=== PATIENT | male | born 1970 | race Caucasian/White ===

== ENCOUNTER 2017-02-16 12:48 | Emergency (ER) | payer OTHER ==
--- NOTE | 2017-02-16 14:21 | DIAGNOSTIC IMAGING REPORT ---
PROCEDURE: CT ABDOMEN/PELVIS W/O CONTRAST INDICATION: Right flank pain. TECHNIQUE: Noncontrast axial images were obtained of the entire abdomen and pelvis with sagittal and coronal reformations. COMPARISON: None. FINDINGS: ABDOMEN: Lungs are clear. Heart size is normal. 4 x 1.5 mm right UVJ calculus with mild right hydro ureteral nephrosis. Normal left kidney and ureter. Liver, gallbladder, pancreas, spleen (calcified granuloma) and adrenal glands are normal. Normal abdominal aorta. Nonspecific bowel gas pattern. PELVIS: Redundant sigmoid. Small midline infraumbilical fat-containing hernia. No pelvic mass, inflammatory changes or free fluid. No suspicious osseous lesions. IMPRESSION: 1. 4 x 1.5 mm right UVJ calculus with mild right hydroureteronephrosis 2. Redundant sigmoid 3. Results discussed with Dr. Barrera All CT scans at this facility use dose modulation, iterative reconstruction, and/or weight-based dosing when appropriate to reduce radiation dose to as low as reasonably achievable.
--- NOTE | 2017-02-16 14:54 | ED NURSING NOTES ---
Clinical Report - Nurses [facility] [address] [place] [address] 02/16/2017 12:51 Patient: YOLANDA SANTOS TRIAGE Triage time 1302 PM. Acuity: LEVEL 3. Chief Complaint: ABDOMINAL PAIN and NAUSEA. Alert. No acute distress. SEPSIS SCREEN: Sepsis Screen. Negative (no infection suspected/documented). ERIKA COMA SCORE: [place] Coma Scale: 15- eyes open spontaneously (4); best verbal response- oriented x 4 (5); best motor response- obeys commands (6). --13:13 Natalia Rapp R.N. 13:02 02/16/17. BP: 174/123 (large adult cuff) taken on the left arm, via an automated monitor, while sitting. HR: 86. RR: 18. O2 saturation: 97% on room air. Temp: 97.5 F (oral). Pain level now: 07/07. --13:13 Natalia Rapp R.N. Weight: 145.1 kg. Height/Length: 71 inches. BMI: 44.6. --13:03 Natalia Rapp R.N. Medications High blood pressure med. --13:06 Natalia Rapp R.N. Coreg Oral 6.25 mg, daily. --15:38 Natalia Rapp R.N. Allergies Penicillins. --13:06 Natalia Rapp R.N. Medication/allergy information source: the patient. --13:13 Natalia Rapp R.N. History Arrived by private vehicle. Historian: patient. Unaccompanied. Primary physician (). ( Pt states being at work when out of now where started having right flank and abdominal pain, sharp unable to describe "just hurts constantly" Pt admits to feeling nauseous no vomiting, no difficulty urinating, no fevers or chills, pt noted to be sweating and in pain). This started today. This is a new problem and onset was abrupt. Symptoms are constant and still present (3 hours). He has had nausea. Last oral intake by patient was dinner last night and yesterday (drank sips of coffee this AM). 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 PAST MEDICAL HX: Immunizations: up-to-date. SOCIAL HX: Never smoker. Occasional alcohol use. No drug use. No recent travel. No infectious disease exposure. No known contact with a sick individual. ABUSE ASSESSMENT: No report of abuse. SELF HARM ASSESSMENT: A self harm assessment was performed. The patient answered "no" to the question "Do you have thoughts of harming or killing yourself?" and "Have you recently had thoughts about harming or killing others?". FALL RISK ASSESSMENT: Fall risk assessment completed. No fall risk identified. NUTRITIONAL RISK ASSESSMENT: The nutritional risk assessment revealed no deficiencies. FUNCTIONAL ASSESSMENT: Functional assessment: no impairments noted. LEARNING NEEDS ASSESSMENT: The learning needs assessment revealed no barriers. SKIN INTEGRITY ASSESSMENT: Skin integrity risk assessment completed. No skin integrity risk identified. --13:13 Natalia Rapp R.N. PROBLEMS: Sepsis. Leukocytosis. Cellulitis. Gastroesophageal Reflux. Sinus Problems. Asthma. Headache. Obesity. Hypertension. --13:06 Natalia Rapp R.N. ADDITIONAL SURGERIES: Reconstruction stomach 1993. --13:06 Natalia Rapp R.N. Interventions ID band on patient. --13:13 Natalia Rapp R.N. PHYSICAL ASSESSMENT Ambulatory to room. GENERAL / NEURO / PSYCH: Alert. Oriented X 4. Appears in pain and anxious. HEENT: Mucous membranes are pink. RESPIRATORY: Respirations not labored. Breath sounds within normal limits. CVS: Capillary refill less than 2 seconds. GI / : The patient has had nausea. Abdomen soft and nontender. Abdominal tenderness. Bowel sounds within normal limits. No abdominal distention. SKIN: Skin is warm and dry. --13:08 Natalia Rapp R.N. NURSING PROGRESS NOTES 13:02/16/2017 Site #1 started via IV in the right antecubital space with an 20g angiocath; one attempt. Blood drawn: rainbow set. Labeled in the presence of the patient and sent to the lab. --13:09 Natalia Rapp R.N. The initial plan of care for this patient has been created This plan of care was discussed with the patient. Patient ID band checked for patient name, birthdate and medical record number: patient confirmed. Blood samples drawn from the right antecubital space by nurse per protocol ; labeled in presence of the patient and sent to lab: rainbow set. Patient gowned. Reassurance given. Patient ID band checked for patient name, birthdate and medical record number: patient confirmed. Instructions provided to collect clean catch urine and patient verbalized understanding. Clean catch urine collected with return of yellow-colored clear urine; sample sent to lab for urinalysis. Specimen labeled in the presence of the patient. Two patient identifiers checked. Call light placed in reach. Side rails up x 1. Bed placed in lowest position. --13: Natalia Rapp R.N. 13:02/16/2017 Morphine IVP 4 mg given over 30 second(s) via site #1. Allergies verified, confirmed 5 rights and sedative warning given to the patient. IV patency established. IV site checked: no pain, redness, or swelling. IV flushed thoroughly pre- and post-medication administration. IVP given by RN. --13: Natalia Rapp R.N. 13:02/16/2017 Started bag #1 1000 mL IV Fluids IV NS (Saline); at 1000 mL/hr over 1 hour(s) via site #1 via IV pump. Allergies verified and confirmed 5 rights. IV patency established. IV site checked: no pain, redness, or swelling. IV flushed thoroughly pre- and post-medication administration. Completed per protocol. --13: Natalia Rapp R.N. 13:02/16/2017 Zofran (Ondansetron HCl) IVP 4 mg given over 2 minute(s) via site #1. Allergies verified and confirmed 5 rights. IV patency established. IV site checked: no pain, redness, or swelling. IV flushed thoroughly pre- and post-medication administration. IVP given by RN. --13: Natalia Rapp R.N. 13:02/16/2017 Morphine IVP 8 mg given over 2 minute(s) via site #1. Allergies verified, confirmed 5 rights and sedative warning given to the patient. IV patency established. IV site checked: no pain, redness, or swelling. IV flushed thoroughly pre- and post-medication administration. --13:55 Charleen Wilkins R.N. 14:28 02/16/2017 Toradol IVP 30 mg given over 30 second(s) via site #1. Allergies verified and confirmed 5 rights. IV patency established. IV site checked: no pain, redness, or swelling. IV flushed thoroughly pre- and post-medication administration. IVP given by RN. --14:28 Natalia Rapp R.N. 14:00 02/16/17. BP: 186/100 (regular adult cuff) taken on the left arm, via an automated monitor, while lying. HR: 98. RR: 18. O2 saturation: 95% on room air. Temp: 97.5 F (oral). Pain level now: 02/04. --14:29 Natalia Rapp R.N. Pulse oximeter and NIBP monitor placed on patient. Reassurance given. Reassessment after fluids administered. GI / : The patient reports abdominal pain. Denies nausea, diarrhea or vomiting. Two patient identifiers checked. Call light placed in reach. --14:29 Natalia Rapp R.N. 14:30 02/16/2017 IV Fluids IV NS Discontinued: bag #1 completed. Total amount infused: 1000 mL. IV patency established. IV site checked: no pain, redness, or swelling. IV flushed thoroughly. --14:30 Natalia Rapp R.N. 14:57 02/16/2017 Morphine IVP 8 mg given over 2 minute(s) via site #1. Allergies verified, confirmed 5 rights and sedative warning given to the patient and patient's family. IV patency established. IV site checked: no pain, redness, or swelling. IV flushed thoroughly pre- and post-medication administration. IVP given by RN. --14:57 Natalia Rapp R.N. 15:32 02/16/17. BP: 183/113 (large adult cuff) taken on the left arm, via an automated monitor, while sitting. HR: 74. RR: 18. O2 saturation: 100%. Temp: 98.3 F. Pain level now: 02/04. --15:35 Natalia Rapp R.N. Pulse oximeter and NIBP monitor placed on patient; monitor alarms on. Reassurance given. The patient is calm and resting quietly. Overall patient status is the same- he states feels better. ( Discharge instructions reviewed, pt as per Dr. Barrera "ok to wait around and see how he feels" IV fluids infusing, BP 180's MD aware, pt wondering if "he can get something for his pressure" MD aware. Strainer given to pt and explanation given, all concerns addressed. Will monitor). GI / : The patient reports abdominal pain. Denies nausea, diarrhea or vomiting. Patient identifiers checked. Call light placed in reach. --15:35 Natalia Rapp R.N. 15:11 02/16/2017 Toradol IVP Response: no adverse reaction pain is improving. Symptoms have improved the patient feels better. --15:36 Natalia Rapp R.N. 15:36 02/16/2017 Morphine IVP Response: no adverse reaction pain is improving. Symptoms have improved the patient feels better. --15:36 Natalia Rapp R.N. DISPOSITION / DISCHARGE 16:20 02/16/2017 Site #1 removed upon discharge. Catheter intact. --16:20 Trung Taylor R.N. 16:21 02/16/17. Condition at departure: improved. The goals identified in the patient's plan of care were met. ( Pt educated on how to strain urine and provide stone to PCP). No learning barriers present. Discharge instructions provided and reviewed with the patient. Reviewed warnings. Reviewed medication(s). Treatments reviewed. Reviewed referral to a urologist. Patient and spouse verbalized understanding. Written instructions provided in Belarusian. The patient was discharged by the physician. He was discharged home and accompanied by family. He left the Emergency Department ambulatory and via private vehicle. Family member driving. FALL RISK ASSESSMENT: Fall risk assessment completed. No fall risk identified. --16:21 Trung Taylor R.N. 16:19 02/16/17. BP: 182/98. HR: 72. RR: 14. O2 saturation: 99%. Temp: 98.2 F (oral). --16:21 Trung Taylor R.N. 16:21 02/16/17. Departure time: 16:21. --16:21 Trung Taylor R.N. Locked/Released at 02/16/2017 16:22 by Trung Taylor R.N.
--- NOTE | 2017-02-16 14:54 | ED ORDER SUMMARY ---
..... Patient: YOLANDA SANTOS OrderSheet [facility] VisitID: [id number] [address] [place] [address] 46y, M Registration Date/Time: 02/16/2017 ORDER SHEET Weight: 145.1 kg Allergies: Penicillins GENERAL ORDERS: CT Abd/Pel wo Cont Urgent (13:02/16/2017 Eliot Krueger) (Ack 13:27 LMuller) (14:10 ALawrence ER Tech1) CBC w Diff Urgent (13:02/16/2017 Eliot Krueger) (13:24 EHassan R.N.) (Ack 13:27 LMuller) CMP Urgent (13:02/16/2017 Eliot Krueger) (13:24 EHassan R.N.) (Ack 13:27 LMuller) UA-Culture if indicated Urgent (13:02/16/2017 Eliot Krueger) (13:24 EHassan R.N.) (Ack 13:27 LMuller) Lipase Urgent (13:02/16/2017 Eliot Krueger) (13:24 EHassan R.N.) (Ack 13:27 LMuller) Pulse oximeter (13:02/16/2017 Eliot Krueger) (13:28 EHassan R.N.) MEDICATION ORDERS: IV FLUIDS: IV NS : initial bolus 1000 mL (1000 mL/hr), then none - for X1 (NOW) (13:02/16/2017 Eliot Krueger) (13:29 EHassaansley R.N.) Morphine IV 4 mg (HIGH ALERT MEDICATION, NOW) (13:02/16/2017 Eliot Krueger) (13:29 JACKIEassaansley R.N.) Zofran IV 4 mg (NOW) (13:02/16/2017 Eliot Krueger) (13:29 JACKIEassaansley R.N.) Morphine IV 8 mg (HIGH ALERT MEDICATION, NOW) (13:52 02/16/2017 Eliot Krueger) (13:55 LWhaltheodore R.N.) Toradol IV 30 mg (NOW) (14:02/16/2017 Eliot Krueger) (14:28 Rohini MontesNRyan) Morphine IV 8 mg (HIGH ALERT MEDICATION, NOW) (14:53 02/16/2017 Eliot Krueger) (14:57 Rohini Jhaveri.Steve) ORDER SHEET NOTES: [Electronically signed by Trung Taylor R.N. (16:02/16/2017)] [Electronically signed by Oniel Barrera Dr. (07:55 02/21/2017)] [Electronically locked/signed by Trung Taylor R.N. (16:02/16/2017)]
--- NOTE | 2017-02-16 14:54 | ED ORDER SUMMARY ---
..... Patient: YOLANDA SANTOS OrderSheet [facility] VisitID: [id number] [address] [place] [address] 46y, M Registration Date/Time: 02/16/2017 ORDER SHEET Weight: 145.1 kg Allergies: Penicillins GENERAL ORDERS: CT Abd/Pel wo Cont Urgent (13:02/16/2017 Eliot Krueger) (Ack 13:27 LMuller) (14:10 ALawrence ER Tech1) CBC w Diff Urgent (13:02/16/2017 Eliot Krueger) (13:24 EHassan R.N.) (Ack 13:27 LMuller) CMP Urgent (13:02/16/2017 Eliot Krueger) (13:24 EHassan R.N.) (Ack 13:27 LMuller) UA-Culture if indicated Urgent (13:02/16/2017 Eliot Krueger) (13:24 EHassan R.N.) (Ack 13:27 LMuller) Lipase Urgent (13:02/16/2017 Eliot Krueger) (13:24 EHassan R.N.) (Ack 13:27 LMuller) Pulse oximeter (13:02/16/2017 Eliot Krueger) (13:28 EHassan R.N.) MEDICATION ORDERS: IV FLUIDS: IV NS : initial bolus 1000 mL (1000 mL/hr), then none - for X1 (NOW) (13:02/16/2017 Eliot Krueger) (13:29 EHassaansley R.N.) Morphine IV 4 mg (HIGH ALERT MEDICATION, NOW) (13:02/16/2017 Eliot Krueger) (13:29 JACKIEassaansley R.N.) Zofran IV 4 mg (NOW) (13:02/16/2017 Eliot Krueger) (13:29 JACKIEassaansley R.N.) Morphine IV 8 mg (HIGH ALERT MEDICATION, NOW) (13:52 02/16/2017 Eliot Krueger) (13:55 LWhaltheodore R.N.) Toradol IV 30 mg (NOW) (14:02/16/2017 Eliot Krueger) (14:28 Rohini MontesNRyan) Morphine IV 8 mg (HIGH ALERT MEDICATION, NOW) (14:53 02/16/2017 Eliot Krueger) (14:57 Rohini Jhaveri.Steve) ORDER SHEET NOTES: [Electronically signed by Trung Taylor R.N. (16:02/16/2017)] [Electronically signed by Oniel Barrera Dr. (07:55 02/21/2017)] [Electronically locked/signed by Trung Taylor R.N. (16:02/16/2017)]
--- NOTE | 2017-02-16 14:54 | ED CLINICAL REPORT ---
Clinical Report - Physicians/Mid Levels [facility] [address] [place] [address] 02/16/2017 12:51 Patient: YOLANDA SANTOS Time Seen: 1317. Arrived- By private vehicle. Historian- patient. HISTORY OF PRESENT ILLNESS Chief Complaint: FLANK PAIN. It is described as "pain" and cramping. No radiation. It is described as located in the right flank. At its maximum, severity described as severe. When seen in the E.D., severity described as severe. Modifying factors- worsened by movement. Relieved by rest. The patient has had nausea and vomiting. No loss of appetite or diarrhea. No additional abdominal pain. No recent travel. Similar symptoms previously: None. Recent medical care: Not recently seen/assessed. REVIEW OF SYSTEMS No constipation, black stools, hematemesis or bloody stools. All systems otherwise negative, except as recorded above. PAST HISTORY See nurses notes. Medications: Coreg Oral 6.25 mg, daily. High blood pressure med. Allergies: Penicillins. SOCIAL HISTORY Never smoker. Alcohol use. No drug use. No recent travel. Is a local resident. ADDITIONAL NOTES The nursing notes have been reviewed. PHYSICAL EXAM Vital Signs: 02/16/2017 13:02 BP: 174/123. HR: 86. RR: 18. O2 saturation: 97%. Temp: 97.5 F. Pain level now: 10/10. Blood pressure normal. Oxygen saturation normal. Appearance: Alert. Oriented X3. No acute distress. Eyes: Pupils equal, round and reactive to light. Eyes normal inspection. ENT: Ears normal. Nose normal. Pharynx normal. Neck: Normal inspection. Neck supple. CVS: Normal heart rate and rhythm. Heart sounds normal. Pulses normal. Respiratory: No respiratory distress. Breath sounds normal. Chest nontender. Abdomen: Soft and nontender. Bowel sounds normal. No mass. (no tenderness at mcburney's. negative master's.). Back: Mild CVA tenderness on the right. Skin: Skin warm and dry. Normal skin color. No rash. Normal skin turgor. Extremities: Extremities exhibit normal ROM. No lower extremity edema. Neuro: Oriented X 3. No motor deficit. No sensory deficit. LABS, X-RAYS, AND EKG Abdominal CT: PROCEDURE: CT ABDOMEN/PELVIS W/O CONTRAST INDICATION: Right flank pain. TECHNIQUE: Noncontrast axial images were obtained of the entire abdomen and pelvis with sagittal and coronal reformations. COMPARISON: None. FINDINGS: ABDOMEN: Lungs are clear. Heart size is normal. 4 x 1.5 mm right UVJ calculus with mild right hydro ureteral nephrosis. Normal left kidney and ureter. Liver, gallbladder, pancreas, spleen (calcified granuloma) and adrenal glands are normal. Normal abdominal aorta. Nonspecific bowel gas pattern. PELVIS: Redundant sigmoid. Small midline infraumbilical fat-containing hernia. No pelvic mass, inflammatory changes or free fluid. No suspicious osseous lesions. IMPRESSION: 1. 4 x 1.5 mm right UVJ calculus with mild right hydroureteronephrosis 2. Redundant sigmoid. Laboratory Tests: UA-Culture if indicated: (CARMELITA: 02/16/2017 13:00) ( [facility] 02/16/2017 13:47) Final results Test Result Flag Units (Reference) URINE COLOR YELLOW URINE APPEARANCE SL CLOUDY URINE GLUCOSE NEGATIVE (NEGATIVE) URINE BILIRUBIN NEGATIVE (NEGATIVE) URINE KETONE NEGATIVE (NEGATIVE) URINE SPECIFIC GRAVITY 1.015 (1.010-1.030) URINE PH 6.5 (5.0-8.0) URINE PROTEIN TRACE (NEGATIVE) URINE UROBILINOGEN 0.2 EU/dL (0.2-1.0) URINE NITRITE NEGATIVE (NEGATIVE) URINE BLOOD 3+ (NEGATIVE) URINE LEUK ESTERASE NEGATIVE (NEGATIVE) URINE RBC >100 rbc/hpf (0-1) URINE WBC 0-1 wbc/hpf (0-1) URINE EPITHELIAL CELLS 0-1 EPI/hpf (0-5) URINE BACTERIA NONE SEEN (NONE SEEN) URINE COMMENT CULT NOT INDICATED URINE CULTURES ARE SET-UP BASED ON THE FOLLOWING CRITERIA:POSITIVE NITRITEPOSITIVE LEUKOCYTE ESTERASEGREATER THAN 10 WHITE BLOOD CELLSMODERATE (2+) OR GREATER BACTERIA CBC w Diff: (CARMELITA: 02/16/2017 13:10) ( [facility] 02/16/2017 13:32) Final results Test Result Flag Units (Reference) WHITE BLOOD COUNT 7.2 K/uL (4.5-11.5) RED BLOOD COUNT 5.19 M/uL (4.50-5.90) HEMOGLOBIN 14.5 gm/dL (13.5-17.5) HEMATOCRIT 43.7 % (41.0-53.0) MEAN CELL VOLUME 84 fL (80-100) MEAN CORPUSCULAR HGB 28 pg (26-34) MEAN CORPUSCULAR HGB CONC 33 g/dL (31-37) RED CELL DISTRIBUTION WIDTH 14.6 % (11.6-14.8) PLATELET COUNT 221 K/uL (150-400) NEUTROPHIL % 75.3 H % (50-75) LYMPH % 17.2 L % (25-40) MONO % 5.9 % (3-14) EOSINOPHIL % 1.3 % (0-4) BASOPHIL % 0.3 % (0-2) CMP: (CARMELITA: 02/16/2017 13:10) ( MsgRcvd 02/16/2017 13:55) Final results Test Result Flag Units (Reference) GLUCOSE 117 H mg/dL (70-110) BUN 16 mg/dL (7-18) CREATININE 1.0 mg/dL (0.6-1.3) Estimated GFR >60 mL/min Estimated GFR- >60 mL/min Note: Persistent reduction over 3 months in eGFR<60 mL/min/1.73 m2 defines CKD. Patients with eGFR values>=60 mL/min/1.73 m2 may also have CKD if evidence ofpersistent proteinuria. Additional information may be foundat www.kidney.org. SODIUM 141 mmol/L (136-145) POTASSIUM 3.4 L mmol/L (3.5-5.1) CHLORIDE 102 mmol/L (98-107) CARBON DIOXIDE 27 mmol/L (21-32) CALCIUM 9.1 mg/dL (8.5-10.1) TOTAL PROTEIN 7.8 g/dL (6.4-8.2) ALBUMIN 3.8 g/dL (3.3-5.0) BILIRUBIN, TOTAL 0.7 mg/dL (0.0-1.0) ALKALINE PHOSPHATASE 80 U/L (46-116) AST (SGOT) 24 U/L (15-37) ALT (SGPT) 40 U/L (12-78) LIPASE 100 U/L (73-393) . PROGRESS AND PROCEDURES Course of Care: the patient is a pleasant 46-year-old male presenting for a vaginal right-sided flank pain. This time differential diagnosis includes acute appendicitis, or more likely renal colic. Patient will be evaluated with a CT scan of the abdomen and pelvis without contrast. Laboratory studies also been ordered including urinalysis. Pain medication as provided. All questions have been answered. Patient is agreeable to the treatment plan. Patient's workup was unremarkable for the findings above. Patient with good chance of passing the stone spontaneously. Pain has been controlled while here in the emergency department after several doses of medications. Patient continues to be nontoxic and in no acute distress. Because of the patient's improved symptoms and pain control, feel the patient is a stable outpatient candidate. We'll have patient follow up with urology And primary care Dr. Heidi discussed with the patient's workup here in the emergency Department clinic diagnosis, home care, follow-up, and return precautions. All questions have been answered. The patient expressed understanding of these instructions and was agreeable to them. Repeat abdominal exam continues to be benign. do not feel patient has a surgical abdomen. Disposition: Discharged. Condition: good. CLINICAL IMPRESSION Acute abdominal pain of unknown cause (right flank). 02/16/2017 14:00 BP: 186/100. HR: 98. RR: 18. O2 saturation: 95%. Temp: 97.5 F. Pain level now: 5/10. Microscopic hematuria (acute). Blood pressure normal. Oxygen saturation normal. Right renal colic in the right ureter with hydronephrosis and hematuria. Essential hypertension. INSTRUCTIONS Warnings: GENERAL WARNINGS: Return or contact your physician immediately if your condition worsens or changes unexpectedly, if not improving as expected, or if other problems arise. SPECIFICALLY, return if you develop pain, fever, vomiting, the inability to keep fluids down, blood in vomitus, blood in diarrhea, fainting or lightheadedness. Your Current Medications: CONTINUE TAKING THE FOLLOWING MEDICATIONS: High blood pressure med*. Prescription Medications: Zofran (orally disintegrating tablets) 4 mg: take 1 orally every 6 hours as needed for nausea and vomiting. Dispense twenty-five (25). No refill. Substitution is permissible. Motrin 600 mg tablets: take 1 tablet orally every 6 hours as needed for pain, stiffness or swelling. Dispense thirty (30). No refill. Substitution is permissible. (take with food) Percocet 5 mg/325 mg: take 1-2 tablets orally every 6 hours as needed for pain. Dispense twenty-five (25). No refill. Substitution is permissible. Follow-up: Return to the emergency department as needed. Follow up with your doctor in three days. Reason for referral: recheck today's concerns. Summary of care provided to patient via paper. Screening today revealed the patient's blood pressure to be in the hypertensive range. Blood pressure screening was not performed during this visit because the patient has an active diagnosis of hypertension. The patient should follow up with a primary care provider for blood pressure management. Understanding of the discharge instructions verbalized by patient. Follow-up with: Arnoldo Estrada MD, Urology, , [address] [facility], [id number] Follow up in one week. Reason for referral: recheck today's concerns. Summary of care provided to patient via paper. (Electronically signed by Oniel Barrera Dr. 02/21/2017 7:55)
--- NOTE | 2017-02-21 07:56 | ED MAR SUMMARY ---
..... Medication Administration Record [facility] [address] [place] [address] Patient: YOLANDA SANTOS Visit ID: [id number] 46y, M Weight: 145.1 kg Height/Length: 71 in BMI: 44.6 ALLERGIES: Penicillins Start 13:02/16/2017 Natalia Rapp R.N., Stop 14:02/16/2017 Natalia Rapp R.N. Medication Administered: IV NS (SALINE), Dose: IV Fluids over 1 hour(s), Rate: 1000 mL/hr, Dispensed: 1000 mL bag, Site: #1 right AC. Medication Ordered: IV NS : initial bolus 1000 mL (1000 mL/hr), then none - for X1 (NOW). Given 13:02/16/2017 Natalia Rapp R.N. Medication Administered: MORPHINE [IVP], Dose: 4 mg IVP over 30 second(s), Site: #1 right AC. Medication Ordered: Morphine IV 4 mg (HIGH ALERT MEDICATION, NOW). Given 13:02/16/2017 Natalia Rapp R.N. Medication Administered: ZOFRAN [IVP] (ONDANSETRON HCL), Dose: 4 mg IVP over 2 minute(s), Site: #1 right AC. Medication Ordered: Zofran IV 4 mg (NOW). Given 13:02/16/2017 Charleen Wilkins R.N. Medication Administered: MORPHINE [IVP], Dose: 8 mg IVP over 2 minute(s), Site: #1 right AC. Medication Ordered: Morphine IV 8 mg (HIGH ALERT MEDICATION, NOW). Given 14:02/16/2017 Natalia Rapp R.N. Medication Administered: TORADOL [IVP], Dose: 30 mg IVP over 30 second(s), Site: #1 right AC. Medication Ordered: Toradol IV 30 mg (NOW). Given 14:02/16/2017 Natalia Rapp R.N. Medication Administered: MORPHINE [IVP], Dose: 8 mg IVP over 2 minute(s), Site: #1 right AC. Medication Ordered: Morphine IV 8 mg (HIGH ALERT MEDICATION, NOW).
--- NOTE | 2017-02-21 07:56 | ED MED RECONCILIATION SUMMARY ---
Patient: YOLANDA SANTOS Medication Reconciliation Report [facility] VisitID: [id number] [address] [place] [address] 46y, M Registration Date/Time: 02/16/2017 Weight: 145.1 kg Height/Length: 71 in. BMI: 44.6 ALLERGIES: Penicillins The patient's Home Medications are listed below: CONTINUE TAKING THE FOLLOWING MEDICATIONS: High blood pressure med THE FOLLOWING MEDICATIONS NEED TO BE RECONCILED: Coreg Oral 6.25 mg, daily The source(s) of the original Home Medication information: patient The following Medications were given to the patient in the Emergency Department: Morphine [IVP] IVP 4 mg, administered: 02/16/2017 1:29:00 PM IV NS IV Fluids bolus 0, then 1000 mL/hr, administered: 02/16/2017 1:29:00 PM Zofran [IVP] IVP 4 mg, administered: 02/16/2017 1:29:00 PM Morphine [IVP] IVP 8 mg, administered: 02/16/2017 1:55:00 PM Toradol [IVP] IVP 30 mg, administered: 02/16/2017 2:28:00 PM Morphine [IVP] IVP 8 mg, administered: 02/16/2017 2:57:00 PM The following Medications were prescribed to the patient: Zofran (orally disintegrating tablets) 4 mg: take 1 orally every 6 hours as needed for nausea and vomiting. Dispense twenty-five (25). No refill. Substitution is permissible. -- Oniel Barrera Dr. Motrin 600 mg tablets: take 1 tablet orally every 6 hours as needed for pain, stiffness or swelling. Dispense thirty (30). No refill. Substitution is permissible.(take with food) -- Oniel Barrera Dr. Percocet 5 mg/325 mg: take 1-2 tablets orally every 6 hours as needed for pain. Dispense twenty-five (25). No refill. Substitution is permissible. -- Oniel Barrera Dr.
--- NOTE | 2017-02-21 07:56 | ED MAR SUMMARY ---
..... Medication Administration Record [facility] [address] [place] [address] Patient: YOLANDA SANTOS Visit ID: [id number] 46y, M Weight: 145.1 kg Height/Length: 71 in BMI: 44.6 ALLERGIES: Penicillins Start 13:02/16/2017 Natalia Rapp R.N., Stop 14:02/16/2017 Natalia Rapp R.N. Medication Administered: IV NS (SALINE), Dose: IV Fluids over 1 hour(s), Rate: 1000 mL/hr, Dispensed: 1000 mL bag, Site: #1 right AC. Medication Ordered: IV NS : initial bolus 1000 mL (1000 mL/hr), then none - for X1 (NOW). Given 13:02/16/2017 Natalia Rapp R.N. Medication Administered: MORPHINE [IVP], Dose: 4 mg IVP over 30 second(s), Site: #1 right AC. Medication Ordered: Morphine IV 4 mg (HIGH ALERT MEDICATION, NOW). Given 13:02/16/2017 Natalia Rapp R.N. Medication Administered: ZOFRAN [IVP] (ONDANSETRON HCL), Dose: 4 mg IVP over 2 minute(s), Site: #1 right AC. Medication Ordered: Zofran IV 4 mg (NOW). Given 13:02/16/2017 Charleen Wilkins R.N. Medication Administered: MORPHINE [IVP], Dose: 8 mg IVP over 2 minute(s), Site: #1 right AC. Medication Ordered: Morphine IV 8 mg (HIGH ALERT MEDICATION, NOW). Given 14:02/16/2017 Natalia Rapp R.N. Medication Administered: TORADOL [IVP], Dose: 30 mg IVP over 30 second(s), Site: #1 right AC. Medication Ordered: Toradol IV 30 mg (NOW). Given 14:02/16/2017 Natalia Rapp R.N. Medication Administered: MORPHINE [IVP], Dose: 8 mg IVP over 2 minute(s), Site: #1 right AC. Medication Ordered: Morphine IV 8 mg (HIGH ALERT MEDICATION, NOW).
--- NOTE | 2017-02-21 07:56 | ED MED RECONCILIATION SUMMARY ---
Patient: YOLANDA SANTOS Medication Reconciliation Report [facility] VisitID: [id number] [address] [place] [address] 46y, M Registration Date/Time: 02/16/2017 Weight: 145.1 kg Height/Length: 71 in. BMI: 44.6 ALLERGIES: Penicillins The patient's Home Medications are listed below: CONTINUE TAKING THE FOLLOWING MEDICATIONS: High blood pressure med THE FOLLOWING MEDICATIONS NEED TO BE RECONCILED: Coreg Oral 6.25 mg, daily The source(s) of the original Home Medication information: patient The following Medications were given to the patient in the Emergency Department: Morphine [IVP] IVP 4 mg, administered: 02/16/2017 1:29:00 PM IV NS IV Fluids bolus 0, then 1000 mL/hr, administered: 02/16/2017 1:29:00 PM Zofran [IVP] IVP 4 mg, administered: 02/16/2017 1:29:00 PM Morphine [IVP] IVP 8 mg, administered: 02/16/2017 1:55:00 PM Toradol [IVP] IVP 30 mg, administered: 02/16/2017 2:28:00 PM Morphine [IVP] IVP 8 mg, administered: 02/16/2017 2:57:00 PM The following Medications were prescribed to the patient: Zofran (orally disintegrating tablets) 4 mg: take 1 orally every 6 hours as needed for nausea and vomiting. Dispense twenty-five (25). No refill. Substitution is permissible. -- Oniel Barrera Dr. Motrin 600 mg tablets: take 1 tablet orally every 6 hours as needed for pain, stiffness or swelling. Dispense thirty (30). No refill. Substitution is permissible.(take with food) -- Oniel Barrera Dr. Percocet 5 mg/325 mg: take 1-2 tablets orally every 6 hours as needed for pain. Dispense twenty-five (25). No refill. Substitution is permissible. -- Oniel Barrera Dr.
--- NOTE | 2017-02-21 07:56 | ED DISCHARGE INSTRUCTIONS ---
Patient: YOLANDA SANTOS General Instructions [facility] VisitID: [id number] [address] [place] [address] 46y, M Registration Date/Time: 02/16/2017 Acute abdominal pain of unknown cause (right flank). 02/16/2017 14:00 BP: 186/100. HR: 98. RR: 18. O2 saturation: 95%. Temp: 97.5 F. Pain level now: 5/10. Microscopic hematuria (acute). Blood pressure normal. Oxygen saturation normal. Right renal colic in the right ureter with hydronephrosis and hematuria. Essential hypertension. INSTRUCTIONS Warnings: GENERAL WARNINGS: Return or contact your physician immediately if your condition worsens or changes unexpectedly, if not improving as expected, or if other problems arise. SPECIFICALLY, return if you develop pain, fever, vomiting, the inability to keep fluids down, blood in vomitus, blood in diarrhea, fainting or lightheadedness. Your Current Medications: CONTINUE TAKING THE FOLLOWING MEDICATIONS: High blood pressure med*. Prescription Medications: Zofran (orally disintegrating tablets) 4 mg: take 1 orally every 6 hours as needed for nausea and vomiting. Dispense twenty-five (25). No refill. Substitution is permissible. Motrin 600 mg tablets: take 1 tablet orally every 6 hours as needed for pain, stiffness or swelling. Dispense thirty (30). No refill. Substitution is permissible. (take with food) Percocet 5 mg/325 mg: take 1-2 tablets orally every 6 hours as needed for pain. Dispense twenty-five (25). No refill. Substitution is permissible. Follow-up: Return to the emergency department as needed. Follow up with your doctor in three days. Reason for referral: recheck today's concerns. Summary of care provided to patient via paper. Screening today revealed the patient's blood pressure to be in the hypertensive range. Blood pressure screening was not performed during this visit because the patient has an active diagnosis of hypertension. The patient should follow up with a primary care provider for blood pressure management. Understanding of the discharge instructions verbalized by patient. Follow-up with: Arnoldo Estrada MD, Urology, , [address] [facility], [id number] Follow up in one week. Reason for referral: recheck today's concerns. Summary of care provided to patient via paper. ADDITIONAL INFORMATION Abdominal Pain,Uncertain Cause [Male] Based on your visit today, the exact cause of your abdominalpain is not clear. Your exam and tests do not indicate a dangerous cause at this time. However, the signs of a serious problem may take more time to appear. Although your evaluation was reassuring today, sometimes early in the course of many conditions, exam and lab tests can appear normal. Therefore, it is important for you to watch for any new symptoms or worsening of your condition. Causes It may not be obvious what caused your symptoms. Pay attention to things that do seem to make your symptoms worse or better and discuss this with your doctor when you follow up. Diagnosis The evaluation of abdominal pain in the emergency department may onlyrequire an exam by the doctor or it may include blood, urine or imaging studies, depending on many factors. Sometimes exams and tests can identify a cause but in many cases, a clear cause is not found. Further testing at follow up visits may help to suggest a clear diagnosis. Home Care Rest as much as possible until your next exam. Try to avoid any medications (unless otherwise directed by your doctor), foods, activities, or other factors that you may have contributed to your symptoms. Try to eat foods that you know that you have tolerated well in the past. Certain diets may be recommended for some conditions that cause abdominal pain. However, since the cause of your symptoms may not be clear, discuss your diet more with your primary care provider or specialist for further recommendations. Eating several small meals per day as opposed to 2 or 3 larger meals may help. Monitor closely for anything that may make your symptoms worse or better. Pay close attention to symptoms below that may indicate worsening of your condition. Follow Up and Precautions See your doctoras instructed or sooneror if your symptoms are not improving.In some cases, you may need more testing. When to Seek Medical Attention Contact your doctor or see medical attention ifany of the following occur: Pain is becoming worse You are unable to take your medications due to excessive vomiting Swelling of the abdomen Fever of 100.4F (38C) or higher, or as directed by your health care provider Blood in vomit or bowel movements (dark red or black color) Jaundice (yellow color of eyes and skin) New onset of weakness, dizziness or fainting New onset of chest, arm, back, neck or jaw pain Kidney Stone (W/ Colic) The sharp cramping pain and nausea/vomiting that you have is due to a small stone which has formed in the kidney and is now passing down a narrow tube (ureter) on its way to your bladder. Once it reaches your bladder, the pain will stop. The stone may pass in your urine stream in one piece. [The size may be 1/16" to 1/4" (1-6mm)]. Or, the stone may also break up into cristina fragments which you may not even notice. Once you have had a kidney stone, you are at risk for developing another one in the future. Home Care: Drink plenty of fluids (at least 8 to 10 glasses of water a day). Most stones will pass on their own, but may take from a few hours to a few days. Sometimes the stone is too large to pass by itself and special methods will have to be used to remove the stone. Each time you urinate, do so in a jar. Pour the urine from the jar through the strainer and into the toilet. Continue doing this until 24 hours after your pain stops. By then, if there was a kidney stone, it should pass from your bladder. Some stones dissolve into sand-like particles and pass right through the strainer. In that case, you wont ever see a stone. Save any stone that you find in the strainer and bring it to your doctor for analysis. It may be possible to prevent certain types of stones from forming. Therefore, it is important to know what kind of stone you have. Try to stay as active as possible since this will help the stone pass. Do not stay in bed unless your pain prevents you from getting up. You may notice a red, pink or brown color to your urine. This is normal while passing a kidney stone. Follow Up with your doctor or return to this facility if the pain lasts more than 48 hours. Get Prompt Medical Attention if any of the following occur: Pain that is not controlled by the medicine given Repeated vomiting or unable to keep down fluids Weakness, dizziness or fainting Fever of 100.4F (38C) or higher, or as directed by your healthcare provider Passage of solid red or brown urine (can't see through it) or urine with lots of blood clots Unable to pass urine for 8 hours and increasing bladder pressure High Blood Pressure --Established High Blood Pressure (Hypertension) is a chronic disease. The cause is unknown in most cases. It can usually be controlled with lifestyle changes and/or medicines. Symptoms of high blood pressure may include headache, dizziness, visual changes, chest pain and shortness of breath. Sometimes it causes no symptoms at all. However, even if there are no symptoms, untreated high blood pressure increases the risk of heart attack, also known as acute myocardial infarction, or AMI, and stroke. It is a serious health risk and should not be ignored. A normal blood pressure is 120/80 or less. The first (top) number is the "systolic" pressure. The second (bottom) number is the "diastolic" pressure. Hypertension exists when either the top number is 140 or higher, OR the bottom number is 90 or higher on repeated measurements. Home Care: All patients with high blood pressure should do the following to lower their pressure. If you are on medicines, then these methods may reduce or eliminate your need for medicines in the future. Begin a weight loss program if you are overweight. Reduce your salt intake. Avoid high salt foods (olives, pickles, smoked meats, salted potato chips, etc.). Do not add salt to your food at the table. Use only small amounts of salt when cooking. Begin an exercise program. Discuss with your doctor what type of exercise program would be best for you. It doesn't have to be difficult. Even brisk walking for 20 minutes three times a week is a good form of exercise. Avoid medicines which contain heart stimulants. This includes many cold and sinus decongestant pills and sprays as well as diet pills. Check the warnings about hypertension on the label. Stimulants such as amphetamine or cocaine could be lethal for someone with hypertension. Never take these. Limit your caffeine intake or switch to caffeine-free products. Stop smoking. If you are a long-time smoker, this can be hard. Enroll in a stop-smoking program to improve your chance of success. Learning how to handle stress better is an important part of any program to lower blood pressure. Learn about relaxation methods such as meditation, yoga or biofeedback. If medicines were prescribed, take them exactly as directed. Missing doses may cause your blood pressure get out of control. Consider buying an automatic blood pressure machine (available at most pharmacies). Use this to monitor your blood pressure at home and report the results to your doctor. Follow Up: Regular visits to your own physician for blood pressure checks and medicine adjustment is an important part of your care. Make a follow-up appointment as directed by our staff. Get Prompt Medical Attention if any of the following occur: Chest pain or shortness of breath Severe headache Throbbing or rushing sound in the ears Nosebleed Sudden severe abdominal pain Extreme drowsiness, confusion or fainting Dizziness or vertigo (dizziness with spinning sensation) Weakness of an arm or leg or one side of the face Difficulty with speech or vision Blood In The Urine Blood in the urine ("hematuria") has many possible causes. If it occurs after an injury (such as a car accident or fall), it is most often a sign of bruising to the kidney or bladder. Common medical causes of blood in the urine include urinary tract infection, kidney stone, inflammation, tumors, or certain other diseases of the kidney or bladder. Menstruation can cause blood to appear in the urine sample, although it is not coming from the urinary tract. If only a trace amount of blood is present, it will show up on the urine test, even though the urine may be yellow and not pink or red. This may occur with any of the above conditions, as well as heavy exercise or high fever. In this case, your doctor may want to repeat the urine test on another day. This will show if the blood is still present. If so, then other tests can be done to find out the cause. Home Care: If your urine does not appear bloody (pink, brown or red) then you do not need to restrict your activity in any way. If you can see blood in your urine, rest and avoid heavy exertion until your next exam. Do not use aspirin or anti-inflammatory medicine like ibuprofen (Motrin, Advil) or naproxen (Naprosyn, Aleve). These thin the blood and may increase bleeding. Follow Up with your doctor or as advised by our staff. If you were injured and had blood in your urine, you should have a repeat urine test in 1-2 days. Contact your doctor or return to this facility for this test. [NOTE: A radiologist will review any X-rays that were taken. We will notify you of any new findings that may affect your care.] Get Prompt Medical Attention if any of the following occur: Bright red blood or blood clots in the urine (if a new symptom) Weakness, dizziness or fainting New groin, abdominal or back pain Fever of 100.4F (38C) or higher, or as directed by your healthcare provider Repeated vomiting Bleeding from nose, gums or easy bruising Ondansetron Oral disintegrating tablet What is this medicine? ONDANSETRON (on OZZIE se ray) is used to treat nausea and vomiting caused by chemotherapy. It is also used to prevent or treat nausea and vomiting after surgery. How should I use this medicine? These tablets are made to dissolve in the mouth. Do not try to push the tablet through the foil backing. With dry hands, peel away the foil backing and gently remove the tablet. Place the tablet in the mouth and allow it to dissolve, then swallow. While you may take these tablets with water, it is not necessary to do so. Talk to your online merchant regarding the use of this medicine in children. Special care may be needed. What side effects may I notice from receiving this medicine? Side effects that you should report to your doctor or health hemodialysis patient care specialist as soon as possible: allergic reactions like skin rash, itching or hives, swelling of the face, lips, or tongue breathing problems dizziness fast or irregular heartbeat feeling faint or lightheaded, falls fever and chills swelling of the hands and feet tightness in the chest Side effects that usually do not require medical attention (report to your doctor or health hemodialysis patient care specialist if they continue or are bothersome): constipation or diarrhea headache What may interact with this medicine? Do not take this medicine with any of the following medications: -apomorphine -cisapride -dofetilide -dronedarone -pimozide -thioridazine -ziprasidone This medicine may also interact with the following medications: -carbamazepine -phenytoin -rifampicin -tramadol -other medicines that prolong the QT interval (cause an abnormal heart rhythm) What if I miss a dose? If you miss a dose, take it as soon as you can. If it is almost time for your next dose, take only that dose. Do not take double or extra doses. Where should I keep my medicine? Keep out of the reach of children. Store between 2 and 30 degrees C (36 and 86 degrees F). Throw away any unused medicine after the expiration date. What should I tell my health care provider before I take this medicine? They need to know if you have any of these conditions: heart disease history of irregular heartbeat liver disease low levels of magnesium or potassium in the blood an unusual or allergic reaction to ondansetron, granisetron, other medicines, foods, dyes, or preservatives or trying to get breast-feeding What should I watch for while using this medicine? Check with your doctor or health hemodialysis patient care specialist as soon as you can if you have any sign of an allergic reaction. Ibuprofen Oral tablet What is this medicine? IBUPROFEN (eye BYOO proe fen) is a non-steroidal anti-inflammatory drug (NSAID). It is used for dental pain, fever, headaches or migraines, osteoarthritis, rheumatoid arthritis, or painful monthly periods. It can also relieve minor aches and pains caused by a cold, flu, or sore throat. How should I use this medicine? Take this medicine by mouth with a glass of water. Follow the directions on the prescription label. Take this medicine with food if your stomach gets upset. Try to not lie down for at least 10 minutes after you take the medicine. Take your medicine at regular intervals. Do not take your medicine more often than directed. A special MedGuide will be given to you by the pharmacist with each prescription and refill. Be sure to read this information carefully each time. Talk to your online merchant regarding the use of this medicine in children. Special care may be needed. What side effects may I notice from receiving this medicine? Side effects that you should report to your doctor or health hemodialysis patient care specialist as soon as possible: allergic reactions like skin rash, itching or hives, swelling of the face, lips, or tongue black or bloody stools, blood in the urine or in vomit breathing problems changes in vision chest pain general ill feeling or flu-like symptoms nausea or vomiting redness, blistering, peeling or loosening of the skin, including inside the mouth slurred speech or weakness on one side of the body stomach pain unexplained weight gain or swelling unusually weak or tired yellowing of eyes or skin Side effects that usually do not require medical attention (report to your doctor or health hemodialysis patient care specialist if they continue or are bothersome): constipation or diarrhea dizziness gas or heartburn stomach upset What may interact with this medicine? Do not take this medicine with any of the following medications: cidofovir ketorolac methotrexate pemetrexed This medicine may also interact with the following medications: alcohol aspirin diuretics lithium other drugs for inflammation like prednisone warfarin What if I miss a dose? If you miss a dose, take it as soon as you can. If it is almost time for your next dose, take only that dose. Do not take double or extra doses. Where should I keep my medicine? Keep out of the reach of children. Store at room temperature between 15 and 30 degrees C (59 and 86 degrees F). Keep container tightly closed. Throw away any unused medicine after the expiration date. What should I tell my health care provider before I take this medicine? They need to know if you have any of these conditions: asthma cigarette smoker drink more than 3 alcohol containing drinks a day heart disease or circulation problems such as heart failure or leg edema (fluid retention) high blood pressure kidney disease liver disease stomach bleeding or ulcers an unusual or allergic reaction to ibuprofen, aspirin, other NSAIDS, other medicines, foods, dyes, or preservatives or trying to get breast-feeding What should I watch for while using this medicine? Tell your doctor or healthcare professional if your symptoms do not start to get better or if they get worse. This medicine does not prevent heart attack or stroke. In fact, this medicine may increase the chance of a heart attack or stroke. The chance may increase with longer use of this medicine and in people who have heart disease. If you take aspirin to prevent heart attack or stroke, talk with your doctor or health hemodialysis patient care specialist. Do not take other medicines that contain aspirin, ibuprofen, or naproxen with this medicine. Side effects such as stomach upset, nausea, or ulcers may be more likely to occur. Many medicines available without a prescription should not be taken with this medicine. This medicine can cause ulcers and bleeding in the stomach and intestines at any time during treatment. Ulcers and bleeding can happen without warning symptoms and can cause . To reduce your risk, do not smoke cigarettes or drink alcohol while you are taking this medicine. You may get drowsy or dizzy. Do not drive, use machinery, or do anything that needs mental alertness until you know how this medicine affects you. Do not stand or sit up quickly, especially if you are an older patient. This reduces the risk of dizzy or fainting spells. This medicine can cause you to bleed more easily. Try to avoid damage to your teeth and gums when you brush or floss your teeth. Oxycodone Hydrochloride, Acetaminophen Oral tablet What is this medicine? ACETAMINOPHEN; OXYCODONE (a set a MICHELLE daisy fen; ox i KOE done) is a pain reliever. It is used to treat mild to moderate pain. How should I use this medicine? Take this medicine by mouth with a full glass of water. Follow the directions on the prescription label. Take your medicine at regular intervals. Do not take your medicine more often than directed. Talk to your online merchant regarding the use of this medicine in children. Special care may be needed. Patients over 65 years old may have a stronger reaction and need a smaller dose. What side effects may I notice from receiving this medicine? Side effects that you should report to your doctor or health hemodialysis patient care specialist as soon as possible: allergic reactions like skin rash, itching or hives, swelling of the face, lips, or tongue breathing difficulties, wheezing confusion light headedness or fainting spells severe stomach pain yellowing of the skin or the whites of the eyes Side effects that usually do not require medical attention (report to your doctor or health hemodialysis patient care specialist if they continue or are bothersome): dizziness drowsiness nausea vomiting What may interact with this medicine? alcohol antihistamines barbiturates like amobarbital, butalbital, butabarbital, methohexital, pentobarbital, phenobarbital, thiopental, and secobarbital benztropine drugs for bladder problems like solifenacin, trospium, oxybutynin, tolterodine, hyoscyamine, and methscopolamine drugs for breathing problems like ipratropium and tiotropium drugs for certain stomach or intestine problems like propantheline, homatropine methylbromide, glycopyrrolate, atropine, belladonna, and dicyclomine general anesthetics like etomidate, ketamine, nitrous oxide, propofol, desflurane, enflurane, halothane, isoflurane, and sevoflurane medicines for depression, anxiety, or psychotic disturbances medicines for sleep muscle relaxants naltrexone narcotic medicines (opiates) for pain phenothiazines like perphenazine, thioridazine, chlorpromazine, mesoridazine, fluphenazine, prochlorperazine, promazine, and trifluoperazine scopolamine tramadol trihexyphenidyl What if I miss a dose? If you miss a dose, take it as soon as you can. If it is almost time for your next dose, take only that dose. Do not take double or extra doses. Where should I keep my medicine? Keep out of the reach of children. This medicine can be abused. Keep your medicine in a safe place to protect it from theft. Do not share this medicine with anyone. Selling or giving away this medicine is dangerous and against the law. Store at room temperature between 20 and 25 degrees C (68 and 77 degrees F). Keep container tightly closed. Protect from light. This medicine may cause accidental overdose and if it is taken by other adults, children, or pets. Flush any unused medicine down the toilet to reduce the chance of harm. Do not use the medicine after the expiration date. What should I tell my health care provider before I take this medicine? They need to know if you have any of these conditions: brain tumor Crohn's disease, inflammatory bowel disease, or ulcerative colitis drink more than 3 alcohol containing drinks per day drug abuse or addiction head injury heart or circulation problems kidney disease or problems going to the bathroom liver disease lung disease, asthma, or breathing problems an unusual or allergic reaction to acetaminophen, oxycodone, other opioid analgesics, other medicines, foods, dyes, or preservatives or trying to get breast-feeding What should I watch for while using this medicine? Tell your doctor or health hemodialysis patient care specialist if your pain does not go away, if it gets worse, or if you have new or a different type of pain. You may develop tolerance to the medicine. Tolerance means that you will need a higher dose of the medication for pain relief. Tolerance is normal and is expected if you take this medicine for a long time. Do not suddenly stop taking your medicine because you may develop a severe reaction. Your body becomes used to the medicine. This does NOT mean you are addicted. Addiction is a behavior related to getting and using a drug for a non-medical reason. If you have pain, you have a medical reason to take pain medicine. Your doctor will tell you how much medicine to take. If your doctor wants you to stop the medicine, the dose will be slowly lowered over time to avoid any side effects. You may get drowsy or dizzy. Do not drive, use machinery, or do anything that needs mental alertness until you know how this medicine affects you. Do not stand or sit up quickly, especially if you are an older patient. This reduces the risk of dizzy or fainting spells. Alcohol may interfere with the effect of this medicine. Avoid alcoholic drinks. There are different types of narcotic medicines (opiates) for pain. If you take more than one type at the same time, you may have more side effects. Give your health care provider a list of all medicines you use. Your doctor will tell you how much medicine to take. Do not take more medicine than directed. Call emergency for help if you have problems breathing. The medicine will cause constipation. Try to have a bowel movement at least every 2 to 3 days. If you do not have a bowel movement for 3 days, call your doctor or health hemodialysis patient care specialist. Do not take Tylenol (acetaminophen) or medicines that have acetaminophen with this medicine. Too much acetaminophen can be very dangerous. Many nonprescription medicines contain acetaminophen. Always read the labels carefully to avoid taking more acetaminophen. You have been given the following additional information: Abdominal Pain, Unknown Cause, (Male) Kidney Stone W/ Colic Hypertension, Established Hematuria Ondansetron Oral disintegrating tablet Ibuprofen Oral tablet Oxycodone Hydrochloride, Acetaminophen Oral tablet (Electronically signed by Oniel Barrera Dr. 02/21/2017 7:55)
== END 2017-02-16 16:21 | disposition home or self-care (01) ==
LOC: ED SRH 12:48
DX: N13.2 Hydronephrosis with renal and ureteral calculous obstruction (principal); R31.29 Other microscopic hematuria; R10.31 Right lower quadrant pain; I10 Essential (primary) hypertension; Z79.899 Other long term (current) drug therapy; Z88.0 Allergy status to penicillin
CPT/HCPCS: 90004; 90100; 92235; 95059

== ENCOUNTER 2017-02-20 16:53 | Emergency (ER) | payer OTHER ==
--- NOTE | 2017-02-20 20:07 | ED CLINICAL REPORT ---
Clinical Report - Physicians/Mid Levels [facility] [address] [place] [place] [address] 02/20/2017 16:54 Patient: YOLANDA SANTOS Time Seen: 16:58; initial patient contact. Arrived- By private vehicle. Historian- patient. HISTORY OF PRESENT ILLNESS Chief Complaint: ABDOMINAL PAIN and FLANK PAIN. It is described as "pain" and it is described as located in the right flank and the left flank and radiating to the groin. At its maximum, severity described as moderate. When seen in the E.D., severity described as moderate. Modifying factors. Not worsened by anything. Not relieved by anything. The patient has had nausea and loss of appetite. No vomiting or diarrhea. Similar symptoms previously: Once. Recent medical care: The patient was seen recently at this facility (Dx'd w/ 5 mm R UVJ stone last week). REVIEW OF SYSTEMS No constipation, difficulty with urination, pain with urination, urinary frequency or fever. No chills. All systems otherwise negative, except as recorded above. PAST HISTORY HTN Kidney stone. SOCIAL HISTORY Never smoker. Occasional alcohol use. No drug use. ADDITIONAL NOTES The nursing notes have been reviewed. PHYSICAL EXAM Vital Signs: 02/20/2017 17:00 BP: 211/129. HR: 97. RR: 18. O2 saturation: 98%. Temp: 97.6 F. Pain level now: 10/10. Have been reviewed. Hypertensive. Heart rate normal. Respiratory rate normal. Temperature normal. Oxygen saturation normal. Appearance: Alert. Oriented X3. Appears to be in pain. Eyes: Eyes normal inspection. ENT: Dry mucous membranes present. Neck: Mild muscle spasm of the right and left posterior neck. Neck supple. Moderate soft tissue tenderness in the right upper, mid and lower neck area and left upper, mid and lower neck area. No nuchal rigidity or decreased ROM in the neck. Negative Brudzinski's sign and Kernig's sign. No vertebral tenderness. CVS: Normal heart rate and rhythm. Heart sounds normal. Respiratory: No respiratory distress. Breath sounds normal. Abdomen: Soft. Moderate tenderness diffusely with guarding present. No rebound tenderness. Bowel sounds normal. No organomegaly. No mass. Back: Moderate tenderness in the right lower and left lower lumbar area. No CVA tenderness, limitation in ROM or muscle spasm. Skin: Skin warm and dry. Normal skin color. Extremities: No lower extremity edema. Neuro: Oriented X 3. LABS, X-RAYS, AND EKG Laboratory Tests: UA-Culture if indicated: (CARMELITA: 02/20/2017 17:10) ( MsgRcvd 02/20/2017 17:24) IP Test Result Flag Units (Reference) URINE COLOR YELLOW URINE APPEARANCE CLEAR URINE GLUCOSE NEGATIVE (NEGATIVE) URINE BILIRUBIN NEGATIVE (NEGATIVE) URINE KETONE NEGATIVE (NEGATIVE) URINE SPECIFIC GRAVITY 1.015 (1.010-1.030) URINE PH 7.5 (5.0-8.0) URINE PROTEIN NEGATIVE (NEGATIVE) URINE UROBILINOGEN 0.2 EU/dL (0.2-1.0) URINE NITRITE NEGATIVE (NEGATIVE) URINE BLOOD NEGATIVE (NEGATIVE) URINE LEUK ESTERASE NEGATIVE (NEGATIVE) . PROGRESS AND PROCEDURES Disposition: Discharged home in good and improved condition. Condition: good. CLINICAL IMPRESSION Muscle strain of the neck and low back. INSTRUCTIONS Drink plenty of fluids. Prescription Medications: Zofran ODT 4 mg: take 1 orally every 6 hours as needed for nausea and vomiting. Dispense ten (10). No refill. Substitution is permissible. Hydrocodone/APAP 10mg / 325mg: take 1 orally every 6 hours as needed for pain. Dispense twenty (20). No refill. Follow-up: Follow up with your doctor in about four days. Call for an appointment. Blood pressure screening was not performed during this visit because the patient has an active diagnosis of hypertension. (Electronically signed by Doug Raphael Dr. 02/20/2017 20:17)
--- NOTE | 2017-02-20 20:07 | ED ORDER SUMMARY ---
..... Patient: YOLANDA SANTOS OrderSheet [facility] VisitID: [id number] [place] [address] 46y, M Registration Date/Time: 02/20/2017 ORDER SHEET Weight: 136.0 kg (stated) Allergies: Penicillins GENERAL ORDERS: CBC w Diff Urgent (17:12 02/20/2017 Rip Krueger) (Ack 17:13 PWeiedgardo ER Tech1) (17:31 CHernandez R.N.) CMP Urgent (17:12 02/20/2017 Rip Krueger) (Ack 17:13 IVANeiedgardo ER Tech1) (17:31 Amynandez R.N.) UA-Culture if indicated Urgent (17:12 02/20/2017 Rip Krueger) (Ack 17:13 IVANeiedgardo ER Tech1) (17:31 CHernandez R.N.) MEDICATION ORDERS: Potassium Chloride PO 40 meq (NOW) (18:28 02/20/2017 Rip Krueger) (Ack 19:07 Amynandez R.N.) (19:14 Amynandez R.N.) Morphine IM 4 mg (HIGH ALERT MEDICATION, NOW) (19:04 02/20/2017 Rip Krueger) (Ack 19:07 Amynandez R.N.) (19:15 Amynandez R.N.) IV FLUIDS: IV NS : initial bolus none -, then 1000 mL/hr for X1 (NOW) (17:11 02/20/2017 Rip Krueger) (Ack 17:19 Paulina R.N.) (17:31 Amynandez R.N.) Toradol IV 30 mg (NOW) (17:19 02/20/2017 Rip Krueger) (Ack 17:19 Paulina R.N.) (17:38 Amynandez R.N.) Zofran IV 4 mg (NOW) (17:19 02/20/2017 Rip Krueger) (Ack 17:20 Amynandez R.N.) (17:40 CHernandez R.N.) ORDER SHEET NOTES: [Electronically signed by Doug Raphael Dr. (20:17 02/20/2017)] [Electronically signed by Yao Cid R.N. (20:02/20/2017)] [Electronically locked/signed by Yao Cid R.N. (20:02/20/2017)]
--- NOTE | 2017-02-20 20:07 | ED NURSING NOTES ---
Clinical Report - Nurses [facility] [place] [address] 02/20/2017 16:54 Patient: YOLANDA SANTOS TRIAGE Triage time 17:03. Acuity: LEVEL 3. Chief Complaint: (back/flank pain). --17: Yao Cid R.N. 17:00 02/20/17. BP: 211/129. HR: 97. RR: 18. O2 saturation: 98%. Temp: 97.6 F (oral). Pain level now: 07/07. --17: Yao Cid R.N. Weight: 136 kg stated. Height/Length: 70 inches Per Patient. BMI: 43. --17:01 Yao Cid R.N. Medications Coreg Oral 6.25 mg, daily. High blood pressure med. --17: Yao Cid R.N. Medication/allergy information source: the patient. --17: Yao Cid R.N. Allergies Penicillins. --17:06 Yao Cid R.N. History Arrived by private vehicle, and accompanied by family. ( Seen in ER last Thursday for renal colic and was able to pass a small stone after going home. Had CT scan prior to discharge and was sent home with pain meds. Ongoing pain on the back and groin, denies any pain in urination, no fever.). 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 --17: Yao Cid R.N. Interventions ID band on patient. To room. --17: Yao Cid R.N. PHYSICAL ASSESSMENT Ambulatory to room. GENERAL / NEURO / PSYCH: Alert. Oriented X 4. Appears in no acute distress. HEENT: Mucous membranes are pink. RESPIRATORY: Respirations not labored. Breath sounds within normal limits. CVS: Normal heart rate and rhythm. GI / : Abdomen nontender. CVA tenderness on the right and left. ( nausea). SKIN: Skin is warm. Skin is slightly diaphoretic. --17: Yao Cid R.N. NURSING PROGRESS NOTES Patient gowned. Head of bed elevated. Patient identifiers checked. Call light placed in reach. Side rails up x 1. Bed placed in lowest position. Brakes of bed on. Patient ready for evaluation- ED physician and LEARN TO SWIM INSTRUCTOR notified. --17: Yao Cid R.N. 17:02/20/2017 Site #1 started via IV in the right antecubital space with an 20g angiocath, with aseptic technique and good blood return; one attempt. Blood drawn: rainbow set. Labeled in the presence of the patient and sent to the lab. Saline lock flushed with 10 mL saline. --17: Yao Cid R.N. Patient ID band checked for patient name and birthdate: patient confirmed. Blood samples drawn from the IV site (prior to IV fluid start) by nurse per protocol ; labeled in presence of the patient and sent to lab: rainbow set. Line flushed with 10 mL normal saline post blood draw. Patient ID band checked for patient name and birthdate: patient confirmed. Instructions provided to collect clean catch urine and patient verbalized understanding urine collected with return of orange-colored cloudy urine; sample sent to lab for urinalysis. Specimen labeled in the presence of the patient. --17: Yao Cid R.N. 17:02/20/2017 Started IV Fluids IV NS (Saline); bolus of 1000 mL over 1 hour(s) via site #1 via IV pump. Allergies verified and confirmed 5 rights. IV patency established. IV site checked: no pain, redness, or swelling. IV flushed thoroughly pre- and post-medication administration. --17: Yao Cid R.N. 17:38 02/20/2017 Toradol IVP 30 mg given over 3 minute(s) via site #1. Allergies verified and confirmed 5 rights. IV patency established. IV site checked: no pain, redness, or swelling. IV flushed thoroughly pre- and post-medication administration. IVP given by RN. --17:38 Yao Cid R.N. 17:40 02/20/2017 Zofran (Ondansetron HCl) IVP 4 mg given over 2 hour(s) via site #1. Allergies verified and confirmed 5 rights. IV patency established. IV site checked: no pain, redness, or swelling. IV flushed thoroughly pre- and post-medication administration. IVP given by RN. --17:40 Yao Cid R.N. Reassessment after fluids administered and medication administered. He is resting quietly. Overall patient status is improved- he states feels better. ( back/flank pain has improved as well as nausea). --18:14 Yao Cid R.N. The patient is calm. GI / : The patient reports nausea is still present but improving and currently mild in severity. --18:34 Yao Cid R.N. 18:33 02/20/17. BP: 195/115. HR: 91. RR: 16. O2 saturation: 95%. Pain level now: 810. --18:34 Yao Cid R.N. 18:32 02/20/2017 IV Fluids IV NS Discontinued: bag #1 infused. Total amount infused: 1000 mL. IV patency established. IV site checked: no pain, redness, or swelling. IV flushed thoroughly. --19:32 Yao Cid R.N. 19:14 02/20/2017 Potassium Chloride (Potassium Chloride ER) PO Tablets 40 meq given. Allergies verified and confirmed 5 rights. --19:14 Yao Cid R.N. 19:15 02/20/2017 Morphine (Morphine Sulfate (PF)) IM 4 mg given. Given in the right deltoid. Allergies verified, confirmed 5 rights and sedative warning given to the patient. --19:15 Yao Cid R.N. Reassessment after medication administered. He is resting quietly. Overall patient status is improved- he states feels better. ( back/flank pain have subsided, patient appears comfortable). GI / : The patient reports nausea is still present but improving. The patient reports abdominal pain. Bowel sounds within normal limits. SKIN: Skin is warm. Skin color within normal limits. --19:46 Yao Cid R.N. 20:01 02/20/2017 Site #1 removed. Pressure dressing applied. --20:01 Yao Cid R.N. DISPOSITION / DISCHARGE No learning barriers present. Discharge instructions provided and reviewed with the patient. Reviewed medication(s) side effects, precautions, dosing and course information. Prescription(s) given to the patient. Patient verbalized understanding. Written instructions provided in Wolof. The patient was discharged home and accompanied by call center agent and grandmother. He left the Emergency Department ambulatory and via private vehicle. Design Editor driving (grandmother). --20:15 Yao Cid R.N. 20:14 02/20/17. BP: 189/98. HR: 88. RR: 18. O2 saturation: 99%. Temp: 98 F (oral). Pain level now: 10/07. --20:15 Yao Cid R.N. Departure time: 20:16. --20:16 Yao Cid R.N. Locked/Released at 02/20/2017 20:17 by Yao Cid R.N.
--- NOTE | 2017-02-20 20:07 | ED NURSING NOTES ---
Clinical Report - Nurses [facility] [place] [address] 02/20/2017 16:54 Patient: YOLANDA SANTOS TRIAGE Triage time 17:03. Acuity: LEVEL 3. Chief Complaint: (back/flank pain). --17: Yao Cid R.N. 17:00 02/20/17. BP: 211/129. HR: 97. RR: 18. O2 saturation: 98%. Temp: 97.6 F (oral). Pain level now: 07/07. --17: Yao Cid R.N. Weight: 136 kg stated. Height/Length: 70 inches Per Patient. BMI: 43. --17:01 Yao Cid R.N. Medications Coreg Oral 6.25 mg, daily. High blood pressure med. --17: Yao Cid R.N. Medication/allergy information source: the patient. --17: Yao Cid R.N. Allergies Penicillins. --17:06 Yao Cid R.N. History Arrived by private vehicle, and accompanied by family. ( Seen in ER last Thursday for renal colic and was able to pass a small stone after going home. Had CT scan prior to discharge and was sent home with pain meds. Ongoing pain on the back and groin, denies any pain in urination, no fever.). 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 --17: Yao Cid R.N. Interventions ID band on patient. To room. --17: Yao Cid R.N. PHYSICAL ASSESSMENT Ambulatory to room. GENERAL / NEURO / PSYCH: Alert. Oriented X 4. Appears in no acute distress. HEENT: Mucous membranes are pink. RESPIRATORY: Respirations not labored. Breath sounds within normal limits. CVS: Normal heart rate and rhythm. GI / : Abdomen nontender. CVA tenderness on the right and left. ( nausea). SKIN: Skin is warm. Skin is slightly diaphoretic. --17: Yao Cid R.N. NURSING PROGRESS NOTES Patient gowned. Head of bed elevated. Patient identifiers checked. Call light placed in reach. Side rails up x 1. Bed placed in lowest position. Brakes of bed on. Patient ready for evaluation- ED physician and HOPPER FEEDER notified. --17: Yao Cid R.N. 17:02/20/2017 Site #1 started via IV in the right antecubital space with an 20g angiocath, with aseptic technique and good blood return; one attempt. Blood drawn: rainbow set. Labeled in the presence of the patient and sent to the lab. Saline lock flushed with 10 mL saline. --17: Yao Cid R.N. Patient ID band checked for patient name and birthdate: patient confirmed. Blood samples drawn from the IV site (prior to IV fluid start) by nurse per protocol ; labeled in presence of the patient and sent to lab: rainbow set. Line flushed with 10 mL normal saline post blood draw. Patient ID band checked for patient name and birthdate: patient confirmed. Instructions provided to collect clean catch urine and patient verbalized understanding urine collected with return of orange-colored cloudy urine; sample sent to lab for urinalysis. Specimen labeled in the presence of the patient. --17: Yao Cid R.N. 17:02/20/2017 Started IV Fluids IV NS (Saline); bolus of 1000 mL over 1 hour(s) via site #1 via IV pump. Allergies verified and confirmed 5 rights. IV patency established. IV site checked: no pain, redness, or swelling. IV flushed thoroughly pre- and post-medication administration. --17: Yao Cid R.N. 17:38 02/20/2017 Toradol IVP 30 mg given over 3 minute(s) via site #1. Allergies verified and confirmed 5 rights. IV patency established. IV site checked: no pain, redness, or swelling. IV flushed thoroughly pre- and post-medication administration. IVP given by RN. --17:38 Yao Cid R.N. 17:40 02/20/2017 Zofran (Ondansetron HCl) IVP 4 mg given over 2 hour(s) via site #1. Allergies verified and confirmed 5 rights. IV patency established. IV site checked: no pain, redness, or swelling. IV flushed thoroughly pre- and post-medication administration. IVP given by RN. --17:40 Yao Cid R.N. Reassessment after fluids administered and medication administered. He is resting quietly. Overall patient status is improved- he states feels better. ( back/flank pain has improved as well as nausea). --18:14 Yao Cid R.N. The patient is calm. GI / : The patient reports nausea is still present but improving and currently mild in severity. --18:34 Yao Cid R.N. 18:33 02/20/17. BP: 195/115. HR: 91. RR: 16. O2 saturation: 95%. Pain level now: 810. --18:34 Yao Cid R.N. 18:32 02/20/2017 IV Fluids IV NS Discontinued: bag #1 infused. Total amount infused: 1000 mL. IV patency established. IV site checked: no pain, redness, or swelling. IV flushed thoroughly. --19:32 Yao Cid R.N. 19:14 02/20/2017 Potassium Chloride (Potassium Chloride ER) PO Tablets 40 meq given. Allergies verified and confirmed 5 rights. --19:14 Yao Cid R.N. 19:15 02/20/2017 Morphine (Morphine Sulfate (PF)) IM 4 mg given. Given in the right deltoid. Allergies verified, confirmed 5 rights and sedative warning given to the patient. --19:15 Yao Cid R.N. Reassessment after medication administered. He is resting quietly. Overall patient status is improved- he states feels better. ( back/flank pain have subsided, patient appears comfortable). GI / : The patient reports nausea is still present but improving. The patient reports abdominal pain. Bowel sounds within normal limits. SKIN: Skin is warm. Skin color within normal limits. --19:46 Yao Cid R.N. 20:01 02/20/2017 Site #1 removed. Pressure dressing applied. --20:01 Yao Cid R.N. DISPOSITION / DISCHARGE No learning barriers present. Discharge instructions provided and reviewed with the patient. Reviewed medication(s) side effects, precautions, dosing and course information. Prescription(s) given to the patient. Patient verbalized understanding. Written instructions provided in Georgian. The patient was discharged home and accompanied by label fuser tender and grandmother. He left the Emergency Department ambulatory and via private vehicle. Inside Wireman driving (grandmother). --20:15 Yao Cid R.N. 20:14 02/20/17. BP: 189/98. HR: 88. RR: 18. O2 saturation: 99%. Temp: 98 F (oral). Pain level now: 10/07. --20:15 Yao Cid R.N. Departure time: 20:16. --20:16 Yao Cid R.N. Locked/Released at 02/20/2017 20:17 by Yao Cid R.N.
--- NOTE | 2017-02-20 20:07 | ED ORDER SUMMARY ---
..... Patient: YOLANDA SANTOS OrderSheet [facility] VisitID: [id number] [place] [address] 46y, M Registration Date/Time: 02/20/2017 ORDER SHEET Weight: 136.0 kg (stated) Allergies: Penicillins GENERAL ORDERS: CBC w Diff Urgent (17:12 02/20/2017 Rip Krueger) (Ack 17:13 PWeiedgardo ER Tech1) (17:31 CHernandez R.N.) CMP Urgent (17:12 02/20/2017 Rip Krueger) (Ack 17:13 IVANeiedgardo ER Tech1) (17:31 Amynandez R.N.) UA-Culture if indicated Urgent (17:12 02/20/2017 Rip Krueger) (Ack 17:13 IVANeiedgardo ER Tech1) (17:31 CHernandez R.N.) MEDICATION ORDERS: Potassium Chloride PO 40 meq (NOW) (18:28 02/20/2017 Rip Krueger) (Ack 19:07 Amynandez R.N.) (19:14 Amynandez R.N.) Morphine IM 4 mg (HIGH ALERT MEDICATION, NOW) (19:04 02/20/2017 Rip Krueger) (Ack 19:07 Amynandez R.N.) (19:15 Amynandez R.N.) IV FLUIDS: IV NS : initial bolus none -, then 1000 mL/hr for X1 (NOW) (17:11 02/20/2017 Rip Krueger) (Ack 17:19 Paulina R.N.) (17:31 Amynandez R.N.) Toradol IV 30 mg (NOW) (17:19 02/20/2017 Rip Krueger) (Ack 17:19 Paulina R.N.) (17:38 Amynandez R.N.) Zofran IV 4 mg (NOW) (17:19 02/20/2017 Rip Krueger) (Ack 17:20 Amynandez R.N.) (17:40 CHernandez R.N.) ORDER SHEET NOTES: [Electronically signed by Doug Raphael Dr. (20:17 02/20/2017)] [Electronically signed by Yao Cid R.N. (20:02/20/2017)] [Electronically locked/signed by Yao Cid R.N. (20:02/20/2017)]
--- NOTE | 2017-02-20 20:18 | ED MAR SUMMARY ---
..... Medication Administration Record [facility] [address] [place] [address] Patient: YOLANDA SANTOS Visit ID: [id number] 46y, M Weight: 136.0 kg Height/Length: 70 in BMI: 43 ALLERGIES: Penicillins Start 17:31 02/20/2017 Yao Cid R.N., Stop 18:32 02/20/2017 Yao Cid R.N. Medication Administered: IV NS (SALINE), Dose: IV Fluids, Bolus: 1000 mL over 1 hour(s), Site: #1 right AC. Medication Ordered: IV NS : initial bolus none -, then 1000 mL/hr for X1 (NOW). Given 17:38 02/20/2017 Yao Cid R.N. Medication Administered: TORADOL [IVP], Dose: 30 mg IVP over 3 minute(s), Site: #1 right AC. Medication Ordered: Toradol IV 30 mg (NOW). Given 17:40 02/20/2017 Yao Cid R.N. Medication Administered: ZOFRAN [IVP] (ONDANSETRON HCL), Dose: 4 mg IVP over 2 hour(s), Site: #1 right AC. Medication Ordered: Zofran IV 4 mg (NOW). Given 19:14 02/20/2017 Yao Cid R.N. Medication Administered: POTASSIUM CHLORIDE [PO] (POTASSIUM CHLORIDE ER), Dose: 40 meq Tablets PO. Medication Ordered: Potassium Chloride PO 40 meq (NOW). Given 19:15 02/20/2017 Yao Cid R.N. Medication Administered: MORPHINE [IM] (MORPHINE SULFATE (PF)), Dose: 4 mg IM. Medication Ordered: Morphine IM 4 mg (HIGH ALERT MEDICATION, NOW).
--- NOTE | 2017-02-20 20:18 | ED MED RECONCILIATION SUMMARY ---
Patient: YOLANDA SANTOS Medication Reconciliation Report [facility] VisitID: [id number] [address] [place] [address] 46y, M Registration Date/Time: 02/20/2017 Weight: 136.0 kg Height/Length: 70 in. BMI: 43.0 ALLERGIES: Penicillins The patient's Home Medications are listed below: THE FOLLOWING MEDICATIONS NEED TO BE RECONCILED: Coreg Oral 6.25 mg, daily High blood pressure med The source(s) of the original Home Medication information: patient The following Medications were given to the patient in the Emergency Department: IV NS IV Fluids bolus 1000 mL over 1 hour(s), administered: 02/20/2017 5:31:00 PM Toradol [IVP] IVP 30 mg, administered: 02/20/2017 5:38:00 PM Zofran [IVP] IVP 4 mg, administered: 02/20/2017 5:40:00 PM Potassium Chloride [PO] PO 40 meq, administered: 02/20/2017 7:14:00 PM Morphine [IM] IM 4 mg, administered: 02/20/2017 7:15:00 PM The following Medications were prescribed to the patient: Zofran ODT 4 mg: take 1 orally every 6 hours as needed for nausea and vomiting. Dispense ten (10). No refill. Substitution is permissible. -- Doug Raphael Dr. Hydrocodone/APAP 10mg / 325mg: take 1 orally every 6 hours as needed for pain. Dispense twenty (20). No refill. -- Doug Raphael Dr.
--- NOTE | 2017-02-20 20:18 | ED MAR SUMMARY ---
..... Medication Administration Record [facility] [address] [place] [address] Patient: YOLANDA SANTOS Visit ID: [id number] 46y, M Weight: 136.0 kg Height/Length: 70 in BMI: 43 ALLERGIES: Penicillins Start 17:31 02/20/2017 Yao Cid R.N., Stop 18:32 02/20/2017 Yao Cid R.N. Medication Administered: IV NS (SALINE), Dose: IV Fluids, Bolus: 1000 mL over 1 hour(s), Site: #1 right AC. Medication Ordered: IV NS : initial bolus none -, then 1000 mL/hr for X1 (NOW). Given 17:38 02/20/2017 Yao Cid R.N. Medication Administered: TORADOL [IVP], Dose: 30 mg IVP over 3 minute(s), Site: #1 right AC. Medication Ordered: Toradol IV 30 mg (NOW). Given 17:40 02/20/2017 Yao Cid R.N. Medication Administered: ZOFRAN [IVP] (ONDANSETRON HCL), Dose: 4 mg IVP over 2 hour(s), Site: #1 right AC. Medication Ordered: Zofran IV 4 mg (NOW). Given 19:14 02/20/2017 Yao Cid R.N. Medication Administered: POTASSIUM CHLORIDE [PO] (POTASSIUM CHLORIDE ER), Dose: 40 meq Tablets PO. Medication Ordered: Potassium Chloride PO 40 meq (NOW). Given 19:15 02/20/2017 Yao Cid R.N. Medication Administered: MORPHINE [IM] (MORPHINE SULFATE (PF)), Dose: 4 mg IM. Medication Ordered: Morphine IM 4 mg (HIGH ALERT MEDICATION, NOW).
--- NOTE | 2017-02-20 20:18 | ED DISCHARGE INSTRUCTIONS ---
Patient: YOLANDA SANTOS General Instructions [facility] VisitID: [id number] [place] [address] 46y, M Registration Date/Time: 02/20/2017 Muscle strain of the neck and low back. INSTRUCTIONS Drink plenty of fluids. Prescription Medications: Zofran ODT 4 mg: take 1 orally every 6 hours as needed for nausea and vomiting. Dispense ten (10). No refill. Substitution is permissible. Hydrocodone/APAP 10mg / 325mg: take 1 orally every 6 hours as needed for pain. Dispense twenty (20). No refill. Follow-up: Follow up with your doctor in about four days. Call for an appointment. Blood pressure screening was not performed during this visit because the patient has an active diagnosis of hypertension. ADDITIONAL INFORMATION Neck Sprain Or Strain A sudden force that causes turning or bending of the neck (such as in a car accident) can stretch or tear muscles (strain) and ligaments (sprain) and cause neck pain. Sometimes neck pain occurs after a simple awkward movement. In either case, muscle spasm is commonly present and contributes to the pain. Unless you had a forceful physical injury (for example, a car accident or fall), X-rays are usually not ordered for the initial evaluation of neck pain. If pain continues and dose not respond to medical treatment, X-rays and other tests may be performed at a later time. Home care The following guidelines will help you care for your injury at home: You may feel more soreness and spasm the first few days after the injury. Reduce your activity level until symptoms begin to improve. When lying down, use a comfortable pillow that supports the head and keeps the spine in a neutral position. The position of the head should not be tilted forward or backward. Use ice packs (ice in a plastic bag, wrapped in a towel) to treat acute pain. Apply for 20 minutes every 24 hours during the first two days. Then, begin local heat (hot shower, hot bath or heating pad) andmassageto reduce muscle spasm. Some patients feel best alternating hot and cold treatments, or just staying with one method only. Do what feels the best to you and gives the most relief. You may use acetaminophen or ibuprofen to control pain, unless another pain medicine was prescribed.If you have chronic liver or kidney disease or ever had a stomach ulcer or GI bleeding, talk with your doctor before using these medicines. Follow-up care Follow up with your physician or this facility if your symptoms do not show signs of improvement. Physical therapy may be needed. If you had X-rays today, they didnt show any broken bones, breaks, or fractures. Sometimes fractures dont show up on the first X-ray. Bruises and sprains can sometimes hurt as much as a fracture. These injuries can take time to heal completely. If your symptoms dont improve or they get worse, talk with your doctor. You may need a repeat X-ray. When to seek medical care Get prompt medical attention if any of the following occur: Pain becomes worse or spreads into your arms Weakness or numbness in one or both arms Back Pain [Acute Or Chronic] Back pain is usually caused by an injury to the muscles or ligaments of the spine. Sometimes the disks that separate each bone in the spine may bulge and cause pain by pressing on a nearby nerve. Back pain may also appear after a sudden twisting/bending force (such as in a car accident), after a simple awkward movement, or lifting something heavy with poor body positioning. In either case, muscle spasm is often present and adds to the pain. Acute back pain usually gets better in one to two weeks. Back pain related to disk disease, arthritis in the spinal joints or spinal stenosis (narrowing of the spinal canal) can become chronic and last for months or years. Unless you had a physical injury (for example, a car accident or fall) X-rays are usually not ordered for the initial evaluation of back pain. If pain continues and does not respond to medical treatment, x-rays and other tests may be performed at a later time. Home Care: You may need to stay in bed the first few days. But, as soon as possible, begin sitting or walking to avoid problems with prolonged bed rest (muscle weakness, worsening back stiffness and pain, blood clots in the legs). When in bed, try to find a position of comfort. A firm mattress is best. Try lying flat on your back with pillows under your knees. You can also try lying on your side with your knees bent up towards your chest and a pillow between your knees. Avoid prolonged sitting. This puts more stress on the lower back than standing or walking. During the first two days after injury, apply an ICE PACK to the painful area for 20 minutes every 2-4 hours. This will reduce swelling and pain. HEAT (hot shower, hot bath or heating pad) works well for muscle spasm. You can start with ice, then switch to heat after two days. Some patients feel best alternating ice and heat treatments. Use the one method that feels the best to you. You may use acetaminophen (Tylenol) or ibuprofen (Motrin, Advil) to control pain, unless another pain medicine was prescribed. [NOTE: If you have chronic liver or kidney disease or ever had a stomach ulcer or GI bleeding, talk with your doctor before using these medicines.] Be aware of safe lifting methods and do not lift anything over 15 pounds until all the pain is gone. Follow Up with your doctor or this facility if your symptoms do not start to improve after one week. Physical therapy may be needed. [NOTE: If X-rays were taken, they will be reviewed by a radiologist. You will be notified of any new findings that may affect your care.] Get Prompt Medical Attention if any of the following occur: Pain becomes worse or spreads to your legs Weakness or numbness in one or both legs Loss of bowel or bladder control Numbness in the groin or genital area Ondansetron Oral disintegrating tablet What is this medicine? ONDANSETRON (on OZZIE se ray) is used to treat nausea and vomiting caused by chemotherapy. It is also used to prevent or treat nausea and vomiting after surgery. How should I use this medicine? These tablets are made to dissolve in the mouth. Do not try to push the tablet through the foil backing. With dry hands, peel away the foil backing and gently remove the tablet. Place the tablet in the mouth and allow it to dissolve, then swallow. While you may take these tablets with water, it is not necessary to do so. Talk to your machine shop supervisor regarding the use of this medicine in children. Special care may be needed. What side effects may I notice from receiving this medicine? Side effects that you should report to your doctor or health medical care evaluation specialist as soon as possible: allergic reactions like skin rash, itching or hives, swelling of the face, lips, or tongue breathing problems dizziness fast or irregular heartbeat feeling faint or lightheaded, falls fever and chills swelling of the hands and feet tightness in the chest Side effects that usually do not require medical attention (report to your doctor or health medical care evaluation specialist if they continue or are bothersome): constipation or diarrhea headache What may interact with this medicine? Do not take this medicine with any of the following medications: -apomorphine -cisapride -dofetilide -dronedarone -pimozide -thioridazine -ziprasidone This medicine may also interact with the following medications: -carbamazepine -phenytoin -rifampicin -tramadol -other medicines that prolong the QT interval (cause an abnormal heart rhythm) What if I miss a dose? If you miss a dose, take it as soon as you can. If it is almost time for your next dose, take only that dose. Do not take double or extra doses. Where should I keep my medicine? Keep out of the reach of children. Store between 2 and 30 degrees C (36 and 86 degrees F). Throw away any unused medicine after the expiration date. What should I tell my health care provider before I take this medicine? They need to know if you have any of these conditions: heart disease history of irregular heartbeat liver disease low levels of magnesium or potassium in the blood an unusual or allergic reaction to ondansetron, granisetron, other medicines, foods, dyes, or preservatives or trying to get breast-feeding What should I watch for while using this medicine? Check with your doctor or health medical care evaluation specialist as soon as you can if you have any sign of an allergic reaction. Hydrocodone Bitartrate, Acetaminophen Oral tablet What is this medicine? ACETAMINOPHEN; HYDROCODONE (a set a MICHELLE daisy fen; gabe droe KOE done) is a pain reliever. It is used to treat mild to moderate pain. How should I use this medicine? Take this medicine by mouth. Swallow it with a full glass of water. Follow the directions on the prescription label. If the medicine upsets your stomach, take the medicine with food or milk. Do not take more than you are told to take. Talk to your machine shop supervisor regarding the use of this medicine in children. This medicine is not approved for use in children. What side effects may I notice from receiving this medicine? Side effects that you should report to your doctor or health medical care evaluation specialist as soon as possible: allergic reactions like skin rash, itching or hives, swelling of the face, lips, or tongue breathing problems confusion feeling faint or lightheaded, falls stomach pain yellowing of the eyes or skin Side effects that usually do not require medical attention (report to your doctor or health medical care evaluation specialist if they continue or are bothersome): nausea, vomiting stomach upset What may interact with this medicine? alcohol antihistamines isoniazid medicines for depression, anxiety, or psychotic disturbances medicines for sleep muscle relaxants naltrexone narcotic medicines (opiates) for pain phenobarbital ritonavir tramadol What if I miss a dose? If you miss a dose, take it as soon as you can. If it is almost time for your next dose, take only that dose. Do not take double or extra doses. Where should I keep my medicine? Keep out of the reach of children. This medicine can be abused. Keep your medicine in a safe place to protect it from theft. Do not share this medicine with anyone. Selling or giving away this medicine is dangerous and against the law. Store at room temperature between 15 and 30 degrees C (59 and 86 degrees F). Protect from light. Keep container tightly closed. Throw away any unused medicine after the expiration date. Discard unused medicine and used packaging carefully. Pets and children can be harmed if they find used or lost packages. What should I tell my health care provider before I take this medicine? They need to know if you have any of these conditions: brain tumor Crohn's disease, inflammatory bowel disease, or ulcerative colitis drink more than 3 alcohol-containing drinks per day drug abuse or addiction head injury heart or circulation problems kidney disease or problems going to the bathroom liver disease lung disease, asthma, or breathing problems an unusual or allergic reaction to acetaminophen, hydrocodone, other opioid analgesics, other medicines, foods, dyes, or preservatives or trying to get breast-feeding What should I watch for while using this medicine? Tell your doctor or health medical care evaluation specialist if your pain does not go away, if it gets worse, or if you have new or a different type of pain. You may develop tolerance to the medicine. Tolerance means that you will need a higher dose of the medicine for pain relief. Tolerance is normal and is expected if you take the medicine for a long time. Do not suddenly stop taking your medicine because you may develop a severe reaction. Your body becomes used to the medicine. This does NOT mean you are addicted. Addiction is a behavior related to getting and using a drug for a non-medical reason. If you have pain, you have a medical reason to take pain medicine. Your doctor will tell you how much medicine to take. If your doctor wants you to stop the medicine, the dose will be slowly lowered over time to avoid any side effects. You may get drowsy or dizzy when you first start taking the medicine or change doses. Do not drive, use machinery, or do anything that may be dangerous until you know how the medicine affects you. Stand or sit up slowly. There are different types of narcotic medicines (opiates) for pain. If you take more than one type at the same time, you may have more side effects. Give your health care provider a list of all medicines you use. Your doctor will tell you how much medicine to take. Do not take more medicine than directed. Call emergency for help if you have problems breathing. The medicine will cause constipation. Try to have a bowel movement at least every 2 to 3 days. If you do not have a bowel movement for 3 days, call your doctor or health medical care evaluation specialist. Too much acetaminophen can be very dangerous. Do not take Tylenol (acetaminophen) or medicines that contain acetaminophen with this medicine. Many non-prescription medicines contain acetaminophen. Always read the labels carefully. You have been given the following additional information: Neck Sprain/Strain Back Pain (Acute Or Chronic) Ondansetron Oral disintegrating tablet Hydrocodone Bitartrate, Acetaminophen Oral tablet (Electronically signed by Doug Raphael Dr. 02/20/2017 20:17)
--- NOTE | 2017-02-20 20:18 | ED MED RECONCILIATION SUMMARY ---
Patient: YOLANDA SANTOS Medication Reconciliation Report [facility] VisitID: [id number] [address] [place] [address] 46y, M Registration Date/Time: 02/20/2017 Weight: 136.0 kg Height/Length: 70 in. BMI: 43.0 ALLERGIES: Penicillins The patient's Home Medications are listed below: THE FOLLOWING MEDICATIONS NEED TO BE RECONCILED: Coreg Oral 6.25 mg, daily High blood pressure med The source(s) of the original Home Medication information: patient The following Medications were given to the patient in the Emergency Department: IV NS IV Fluids bolus 1000 mL over 1 hour(s), administered: 02/20/2017 5:31:00 PM Toradol [IVP] IVP 30 mg, administered: 02/20/2017 5:38:00 PM Zofran [IVP] IVP 4 mg, administered: 02/20/2017 5:40:00 PM Potassium Chloride [PO] PO 40 meq, administered: 02/20/2017 7:14:00 PM Morphine [IM] IM 4 mg, administered: 02/20/2017 7:15:00 PM The following Medications were prescribed to the patient: Zofran ODT 4 mg: take 1 orally every 6 hours as needed for nausea and vomiting. Dispense ten (10). No refill. Substitution is permissible. -- Doug Raphael Dr. Hydrocodone/APAP 10mg / 325mg: take 1 orally every 6 hours as needed for pain. Dispense twenty (20). No refill. -- Doug Raphael Dr.
== END 2017-02-20 20:15 | disposition home or self-care (01) ==
LOC: ED SRH 16:53
DX: S16.1XXA Strain of muscle, fascia and tendon at neck level, initial encounter (principal); S39.012A Strain of muscle, fascia and tendon of lower back, initial encounter; X58.XXXA Exposure to other specified factors, initial encounter; Y93.9 Activity, unspecified; Y99.9 Unspecified external cause status; Y92.9 Unspecified place or not applicable; I10 Essential (primary) hypertension; Z87.442 Personal history of urinary calculi
CPT/HCPCS: 90004; 90100; 95059